=== PATIENT | female | born 1950 | race Asian ===

== ENCOUNTER 2018-06-30 08:28 | Day surgery (SDC) | payer OTHER | END 2018-06-30 10:56 | disposition home or self-care (01) | LOC: OR 08:28 | PROC: 3E0T3BZ Introduction of Anesthetic Agent into Peripheral Nerves and Plexi, Percutaneous Approach (ICD-10-PCS; principal; 2018-06-30) | DX: M25.561 Pain in right knee (principal); M17.11 Unilateral primary osteoarthritis, right knee | CPT/HCPCS: J2001 ==

== ENCOUNTER 2018-07-14 07:41 | Day surgery (SDC) | payer OTHER | END 2018-07-14 09:18 | disposition home or self-care (01) | LOC: OR 07:41 | PROC: 3E0T3BZ Introduction of Anesthetic Agent into Peripheral Nerves and Plexi, Percutaneous Approach (ICD-10-PCS; principal; 2018-07-14) | DX: M25.561 Pain in right knee (principal); M17.11 Unilateral primary osteoarthritis, right knee | CPT/HCPCS: J2001 ==

== ENCOUNTER 2018-10-06 10:19 | Day surgery (SDC) | payer OTHER | END 2018-10-06 12:10 | disposition home or self-care (01) | LOC: OR 10:19 | PROC: 3E0T3TZ Introduction of Destructive Agent into Peripheral Nerves and Plexi, Percutaneous Approach (ICD-10-PCS; principal; 2018-10-06) | DX: M17.11 Unilateral primary osteoarthritis, right knee (principal); M25.561 Pain in right knee | CPT/HCPCS: J2001 ==

== ENCOUNTER 2019-06-21 08:52 | Day surgery (SDC) | payer OTHER | END 2019-06-21 14:07 | disposition home or self-care (01) | LOC: OR 08:52 | PROC: 3E0T3TZ Introduction of Destructive Agent into Peripheral Nerves and Plexi, Percutaneous Approach (ICD-10-PCS; principal; 2019-06-21) | PROC: B01BYZZ Fluoroscopy of Spinal Cord using Other Contrast (ICD-10-PCS; 2019-06-21) | DX: M25.562 Pain in left knee (principal); M17.12 Unilateral primary osteoarthritis, left knee | CPT/HCPCS: J2001 ==

== ENCOUNTER 2020-01-31 06:52 | Day surgery (SDC) | payer OTHER ==
[~2020-01-31] VITALS: Ht 30.5 cm; Wt 0.5 kg
== END 2020-01-31 08:59 | disposition home or self-care (01) ==
LOC: OR 06:52
PROC: 3E0T3TZ Introduction of Destructive Agent into Peripheral Nerves and Plexi, Percutaneous Approach (ICD-10-PCS; principal; 2020-01-31)
DX: M25.561 Pain in right knee (principal); M17.11 Unilateral primary osteoarthritis, right knee
CPT/HCPCS: J2001